=== PATIENT | female | born 1970 | race Caucasian/White ===

== ENCOUNTER 2017-05-30 20:21 | Emergency (ER) | payer OTHER ==
[2017-05-30 20:35] VITALS: RESP 17; TEMP 98.2
--- NOTE | 2017-05-30 20:46 | CPEKG ---
Heart Rate: 79 RR Interval: 759 P-R Interval: 124 QRSD Interval: 80 QT Interval: 388 QTC Interval: 445 P Firestone: 42 QRS Firestone: 59 T Wave Firestone: 43 EKG Severity - ABNORMAL ECG - EKG Impression: SINUS RHYTHM EKG Impression: MULTIFORM VENTRICULAR PREMATURE COMPLEXES EKG Impression: PROBABLE LEFT ATRIAL ABNORMALITY EKG Impression: BORDERLINE R WAVE PROGRESSION, ANTERIOR LEADS Electronically Signed By: Essie Hernandez 30-May-2017 23:22:45
[2017-05-30] MEDS ORDERED: ONDANSETRON 4 MG/2 ML VIAL IVP ONE (21:07)
[2017-05-30] MEDS ORDERED: NS 1,000 ML IV ONE (21:07)
[2017-05-30] MEDS ORDERED: LORazepam 2 MG/ML INJ IVP ONE (21:07)
--- NOTE | 2017-05-30 21:07 | EDPHY ---
General Narrative: CHIEF COMPLAINT: Palpitations, tingling, possible adverse reaction to marijuana HISTORY OF PRESENT ILLNESS: Patient complains of sudden onset of tingling of the hands and feet, palpitations, heart racing. She said this started soon after smoking marijuana at 5:00 p.m.. She normally dose of daily but this was different supplier for her. She had no chest pain during is this, but she says that she did feel her heart beating faster. No shortness of breath. No headache. No nausea or vomiting. She says she did feel anxious and she began to think possible cause of that she became more anxious. She still has no chest pain at this time. REVIEW OF SYSTEMS: Ten systems reviewed and are negative unless otherwise noted in the HPI PCP: Waiting to establish with Dr. Abdi SPECIALISTS: None PAST MEDICAL HISTORY: No current diagnoses PAST SURGICAL HISTORY: Tympanostomy tubes as a child, SOCIAL HISTORY: Daily smoker. Occasional alcohol use. Daily marijuana use. FAMILY HISTORY: Noncontributory EXAMINATION General Appearance: Alert, no distress, resting comfortably Head: normocephalic, atraumatic Eyes: Pupils equal and round, no conjunctival pallor or injection ENT, Mouth: Mucous membranes moist. Airway is widely patent. Neck: Normal inspection, supple, non-tender Respiratory: Lungs are clear to auscultation no wheezing, rhonchi or crackles Cardiovascular: Regular rate and rhythm. No murmur. Symmetric radial pulses 2+ . Symmetric DP pulses 2+. Gastrointestinal: Abdomen is soft and nontender. No tympany rigidity Back: non-tender, no bony abnormalities Neurological: GCS 15. Cranial nerves 2-12 grossly intact. A&O, nonfocal, normal gait. Strength is symmetric in the lower and upper extremities. No pronator drift. Normal finger to nose. Skin: Warm and dry, no rash. No petechiae or purpura Extremities: Nontender, no pedal edema Psychiatric: Mood and affect normal DIFFERENTIAL DIAGNOSES: Including but not limited to adverse drug reaction, anxiety, dehydration, electrolyte disturbance, hypomagnesemia MDM: 9:05 p.m. Possible adverse reaction to marijuana use. She describes palpitations with an EKG that shows occasional PVCs. She has no ischemia on the EKG. She has no chest pain of any kind. Her vital signs are within normal limits. Laboratory studies have been ordered. I have also ordered Ativan and IV fluid 9:10 p.m. Case discussed with Dr. Hernandez. She agrees the plan thus far. She has reviewed the patient's EKG 9:55 p.m. Laboratory studies are all within normal limits. Chest x-ray is unremarkable for any acute findings. This includes a normal magnesium. I have re-evaluated the patient. She is resting comfortably at this time. She is completely symptom free after the Ativan. She feels 100% improved and wants to go home. We discussed contacting the on-call primary care physician to establish or the previous physician that she was attempting to establish with. We discussed ED precautions including any chest pain or return of symptoms. She is comfortable this plan, I have answered all her questions, she would like to be discharged home. She is discharged in stable condition EKG interpretation: Dr. Hernandez SUPERVISION: Patient was independently examined, but I discussed the case with my secondary supervising physician Dr. Hernandez - Diagnostics Imaging Results: Imaging Impressions Chest X-Ray 05/30/17 21:07 Impression: Mild peribronchial thickening, which could be related to bronchitis/ airways disease. - History Smoking Status: Current every day smoker - Objective Vital Signs: Initial Vital Signs Temperature (C) 98.2 F 05/30/17 20:31 Heart Rate 82 05/30/17 20:31 Respiratory Rate 17 05/30/17 20:31 Blood Pressure 158/78 H 05/30/17 20:31 O2 Sat (%) 92 05/30/17 20:31 O2 Delivery Mode Room Air Allergies/Adverse Reactions: codeine Allergy (Verified 05/30/17 20:35) latex Allergy (Verified 05/30/17 20:35) Home Medications: Medication Instructions Recorded NK [No Known Home Meds] 05/30/17 Laboratory Results: Laboratory Results 05/30/17 20:50 05/30/17 20:50 05/30/17 05/30/17 20:50 20:50 WBC 7.63 10^3/uL 10^3/uL (3.80-9.50) RBC 5.03 10^6/uL 10^6/uL (4.18-5.33) Hgb 15.9 g/dL g/dL (12.6-16.3) Hct 44.7 % % (38.0-47.0) MCV 88.9 fL fL (81.5-99.8) MCH 31.6 pg pg (27.9-34.1) MCHC 35.6 g/dL g/dL (32.4-36.7) RDW 13.7 % % (11.5-15.2) Plt Count 214 10^3/uL 10^3/uL (150-400) MPV 10.5 fL fL (8.7-11.7) Neut % (Auto) 78.4 % H % (39.3-74.2) Lymph % (Auto) 16.4 % % (15.0-45.0) Wetzel % (Auto) 4.1 % L % (4.5-13.0) Eos % (Auto) 0.3 % L % (0.6-7.6) Baso % (Auto) 0.5 % % (0.3-1.7) Nucleat RBC Rel Count 0.0 % % (0.0-0.2) Absolute Neuts (auto) 5.99 10^3/uL 10^3/uL (1.70-6.50) Absolute Lymphs (auto) 1.25 10^3/uL 10^3/uL (1.00-3.00) Absolute Monos (auto) 0.31 10^3/uL 10^3/uL (0.30-0.80) Absolute Eos (auto) 0.02 10^3/uL L 10^3/uL (0.03-0.40) Absolute Basos (auto) 0.04 10^3/uL 10^3/uL (0.02-0.10) Absolute Nucleated RBC 0.00 10^3/uL 10^3/uL (0-0.01) Immature Gran % 0.3 % % (0.0-1.1) Immature Gran # 0.02 10^3/uL 10^3/uL (0.00-0.10) Sodium 144 mEq/L mEq/L (134-144) Potassium 4.1 mEq/L mEq/L (3.5-5.2) Chloride 107 mEq/L mEq/L (97-110) Carbon Dioxide 24 mEq/l mEq/l (22-31) Anion Gap 13 mEq/L mEq/L (8-16) BUN 12 mg/dL mg/dL (7-23) Creatinine 0.6 mg/dL mg/dL (0.6-1.0) Estimated GFR > 60 Glucose 107 mg/dL H mg/dL (70-100) Calcium 10.1 mg/dL mg/dL (8.5-10.4) Magnesium 2.1 mg/dL mg/dL (1.6-2.3) Total Bilirubin 0.5 mg/dL mg/dL (0.1-1.4) Conjugated Bilirubin 0.3 mg/dL mg/dL (0.0-0.5) Unconjugated Bilirubin 0.2 mg/dL mg/dL (0.0-1.1) AST 25 IU/L IU/L (14-46) ALT 33 IU/L IU/L (9-52) Alkaline Phosphatase 85 IU/L IU/L (38-126) Troponin I Cancelled Total Protein 8.0 g/dL g/dL (6.3-8.2) Albumin 4.4 g/dL g/dL (3.5-5.0) Lipase 122 IU/L IU/L (23-300) Medications Given: Discontinued Medications Sodium Chloride (Ns) 1,000 mls @ 0 mls/hr IV EDNOW ONE; Wide Open PRN Reason: Protocol Stop: 05/30/17 21:08 Last Admin: 05/30/17 21:14 Dose: 1,000 mls Lorazepam (Ativan Injection) 1 mg IVP EDNOW ONE Stop: 05/30/17 21:08 Last Admin: 05/30/17 21:14 Dose: 1 mg Ondansetron HCl (Zofran) 4 mg IVP EDNOW ONE Stop: 05/30/17 21:08 Last Admin: 05/30/17 21:14 Dose: 4 mg Departure - Departure Disposition: Home, Routine, Self-Care Clinical Impression: Palpitations Adverse effect of cannabis Qualifiers: Encounter type: initial encounter Qualified Code(s): T40.7X5A - Adverse effect of cannabis (derivatives), initial encounter Condition: Good Instructions: Medicinal Use of Cannabis (ED), Heart Palpitations (ED) Additional Instructions: 1. Contact the on-call primary care physician as provided to establish 2. Return to emergency department for any chest pain or return of symptoms Referrals: Mckenzie Mckeon DO [Doctor of Osteopathy] - As per Instructions SOPHIA ABDI MD [Non Staff Provider (MD)] - As per Instructions
[2017-05-30 21:18] LABS: % IMMATURE GRANULYOCYTES 0.3 % (0.0-1.1); ABSOLUTE IMMATURE GRANULOCYTES 0.02 10^3/uL (0.00-0.10); ADD DIFF? NO; ADD MORPH? NO; ADD SCAN? NO; ATYPICAL LYMPHOCYTE FLAG 10 (0-99); FRAGMENT RBC FLAG 0 (0-99); HEMATOCRIT 44.7 % (38.0-47.0); HEMOGLOBIN 15.9 g/dL (12.6-16.3); LEFT SHIFT FLG 0 (0-99); LIPEMIA HEMOLYSIS FLAG 90 (0-99); MEAN CELL HEMOGLOBIN 31.6 pg (27.9-34.1); MEAN CELL HEMOGLOBIN CONCENTR. 35.6 g/dL (32.4-36.7); MEAN CELL VOLUME 88.9 fL (81.5-99.8); MEAN PLATELET VOLUME 10.5 fL (8.7-11.7); PLATELET CLUMPS FLAG 0 (0-99); PLATELET COUNT 214 10^3/uL (150-400); RED BLOOD CELL COUNT 5.03 10^6/uL (4.18-5.33); RED CELL DISTRIBUTION WIDTH 13.7 % (11.5-15.2)
[2017-05-30 21:23] LABS: ALANINE AMINOTRANSFERASE 33 IU/L (9-52); ALBUMIN 4.4 g/dL (3.5-5.0); ALKALINE PHOSPHATASE 85 IU/L (38-126); ANION GAP 13 mEq/L (8-16); ASPARTATE AMINOTRANSFERASE 25 IU/L (14-46); BILIRUBIN,TOTAL 0.5 mg/dL (0.1-1.4); BILIRUBIN-CONJUGATED 0.3 mg/dL (0.0-0.5); BILIRUBIN-UNCONJUGATED 0.2 mg/dL (0.0-1.1); CALCIUM 10.1 mg/dL (8.5-10.4); CARBON DIOXIDE 24 mEq/l (22-31); CHLORIDE 107 mEq/L (97-110); CREATININE 0.6 mg/dL (0.6-1.0); GLOMERULAR FILTRATION RATE > 60; GLUCOSE 107 mg/dL (70-100); MAGNESIUM 2.1 mg/dL (1.6-2.3); POTASSIUM 4.1 mEq/L (3.5-5.2); SODIUM 144 mEq/L (134-144)
[2017-05-30 22:10] VITALS: BP 132/80; PULSE 87; O2SAT 95
== END 2017-05-30 22:15 | disposition home or self-care (01) ==
DX: R00.2 Palpitations (principal); T40.7X5A Adverse effect of cannabis (derivatives), initial encounter; F17.200 Nicotine dependence, unspecified, uncomplicated; E86.9 Volume depletion, unspecified; Z91.040 Latex allergy status
CPT/HCPCS: 96374; J2060; J2405